=== PATIENT | male | born 1970 | race Asian ===

== ENCOUNTER 2017-09-25 08:32 | Inpatient (IN) | payer MEDICARE, OTHER ==
[2017-09-25] MEDS ORDERED: VANCOMYCIN 1 GM (PMX) 250 ML (09:08)
[2017-09-25] MEDS: VANCOMYCIN 1 GM (PMX) 250 ML IVPB (09:17)
[2017-09-25] MEDS: CEFAZOLIN 2 GM/50 ML (PMX) 50 ML IVPB (09:30)
[2017-09-25] MEDS: LACTATED RINGER'S 1,000 ML IV* (09:30)
[2017-09-25] MEDS ORDERED: BACITRACIN/POLYMYXIN 28.35 GM OINT TOP (09:41)
[2017-09-25] MEDS ORDERED: morphine SULFATE/PF (10 MG/10 ML) INJ (10:18)
[2017-09-25] MEDS ORDERED: FENTAnyl 50 MCG/ML VIAL (10:51)
[2017-09-25] MEDS ORDERED: PHENYLephrine (100 MCG/ML) 5ML SYG ×5 (10:53→13:03)
[2017-09-25] MEDS ORDERED: HYDROCORTISONE 100 MG INJ (10:57)
[2017-09-25] MEDS ORDERED: TRANEXAMIC ACID 1,000 MG in DEXTROSE 5% 100 ML IVPB (11:00)
[2017-09-25] MEDS ORDERED: SOD CHLORIDE 0.9% 50 ML, TRANEXAMIC ACID 1,000 MG IRR (11:00)
[2017-09-25] MEDS ORDERED: ONDANSETRON 4 MG INJ IV ×2 (11:00→15:00)
[2017-09-25] MEDS ORDERED: DEXAMETHASONE 4 MG/ML 1 ML INJ IV (11:00)
[2017-09-25] MEDS ORDERED: CELECOXIB 200 MG CAP PO (11:00)
[2017-09-25] MEDS ORDERED: oxyCODONE (CR) 10 MG TAB [oxyCONTIN] PO (11:00)
[2017-09-25] MEDS ORDERED: LANSOPRAZOLE 30 MG CAP PO (11:00)
[2017-09-25] MEDS ORDERED: ACETAMINOPHEN 1000MG/100ML IV 100 ML IVPB (11:00)
[2017-09-25] MEDS: POLYMYXIN B 500000 UNIT INJ (11:25)
[2017-09-25] MEDS: BACITRACIN 50000 UNITS INJ (11:26)
[2017-09-25] MEDS: HIP PAIN COCKTAIL (CEFUROXIME) INJ (11:55)
[2017-09-25] MEDS ORDERED: VASOPRESSIN 20 UNITS INJ (12:30)
[2017-09-25] MEDS ORDERED: HETASTARCH 6% NACL 500 ML (12:31)
[2017-09-25] MEDS ORDERED: SUCCINYLCHOLINE CHLORIDE 100 MG/5 ML SYG IV (12:52)
[2017-09-25] MEDS ORDERED: ROCURONIUM 50 MG INJ (12:52)
[2017-09-25] MEDS ORDERED: PROPOFOL 20 ML (12:52)
[2017-09-25] MEDS ORDERED: LIDOCAINE 2% (SDV) 5 ML INJ (12:52)
[2017-09-25] MEDS ORDERED: SUGAMMADEX SODIUM 200 MG/2 ML VIAL IV (12:52)
[2017-09-25] MEDS ORDERED: DIPHENHYDRAMINE 50 MG INJ IM (13:30)
[2017-09-25] MEDS ORDERED: NACL 0.9% 3 ML SYG IV (13:30)
[2017-09-25] MEDS ORDERED: MAGNESIUM HYDROXIDE 30ML CUP PO (13:30)
[2017-09-25] MEDS ORDERED: SENNA/DOCUSATE NA (8.6MG/50MG) TAB PO (13:30)
[2017-09-25] MEDS ORDERED: BISACODYL 10 MG SUPP PR (13:30)
[2017-09-25] MEDS ORDERED: oxyCODONE 5 MG TAB PO (13:30)
[2017-09-25] MEDS ORDERED: NA PHOSPHATE/BIPHOS 133 ML ENEMA PR (13:30)
[2017-09-25] MEDS ORDERED: ZOLPIDEM 5 MG TAB PO (13:30)
[2017-09-25] MEDS ORDERED: NALOXONE (0.4 MG/ML) INJ IV (13:30)
[2017-09-25] MEDS ORDERED: BETHANECHOL 25 MG TAB PO (13:30)
[2017-09-25] MEDS ORDERED: FENTAnyl 50 MCG/ML VIAL IV ×2 (15:00)
[2017-09-25] MEDS ORDERED: METOCLOPRAMIDE 10 MG INJ IV (15:00)
[2017-09-25] MEDS ORDERED: EPHEDrine SULFATE 50 MG/5 ML SYG IV (15:00)
[2017-09-25] MEDS ORDERED: DIPHENHYDRAMINE 50 MG INJ IV (15:00)
[2017-09-25] MEDS ORDERED: MEPERIDINE 25 MG INJ IV (15:00)
[2017-09-25] MEDS ORDERED: HYDROmorphONE (0.2 MG/ML) 10ML SYG IV ×2 (15:00)
[2017-09-25] MEDS: ASPIRIN (EC) 325 MG TAB PO ×2 (15:08→21:07)
[2017-09-25] MEDS: DOCUSATE SODIUM 100 MG CAP PO (15:08)
[2017-09-25] MEDS: CEFAZOLIN 1 GM/50 ML (PMX) 50 ML IVPB ×2 (15:12→22:19)
[2017-09-25] MEDS: ONDANSETRON 4 MG INJ IV ×2 (15:15→21:10)
[2017-09-25] MEDS: SOD CHLORIDE 0.9% 1,000 ML IV ×4 (15:18→22:19)
[2017-09-25] MEDS ORDERED: ALBUTEROL/IPRATROPIUM (NEB) 3 ML AMP INH (15:30)
[2017-09-25 17:26] LABS: MAGNESIUM 1.4 mg/dl (1.7-2.5)
[2017-09-25 20:14] LABS: HEMATOCRIT 24.6 % (42.0-52.0); HEMOGLOBIN 8.5 g/dl (14.0-18.0)
[2017-09-25 20:42] LABS: ANION GAP 13 (8-16); BLOOD UREA NITROGEN 24 mg/dl (7-20); CALCIUM 8.1 mg/dl (8.4-10.2); CARBON DIOXIDE 21 mmol/L (21-31); CHLORIDE 111 mmol/L (97-110); GLUCOSE 160 mg/dl (70-220); MAGNESIUM 1.3 mg/dl (1.7-2.5); POTASSIUM 4.3 mmol/L (3.5-5.1); SODIUM 141 mmol/L (135-144)
[2017-09-25] MEDS: ATORVASTATIN 20 MG TAB PO (21:06)
[2017-09-25] MEDS: MAGNESIUM CHLORIDE (SR) 64 MG TAB PO (21:06)
[2017-09-25] MEDS: LORATADINE 10 MG TAB PO (21:07)
[2017-09-25] MEDS: GABAPENTIN 100 MG CAP PO (21:07)
[2017-09-25] MEDS: CYCLOSPORINE 25 MG CAP PO (21:07)
[2017-09-25] MEDS: MONTELUKAST 10 MG TAB PO (21:07)
[2017-09-25] MEDS: DOCUSATE SODIUM 250 MG CAP PO (21:07)
[2017-09-25] MEDS: CHLORHEXIDINE GLUCONATE 15 ML UD CUP MM (21:10)
[2017-09-25] MEDS: PSYLLIUM (SUGAR FREE) PACKET PO (21:10)
[2017-09-25] MEDS: BUDESONIDE (NEB) 0.5MG/2ML AMP INH (22:30)
[2017-09-26] MEDS: ACETAMINOPHEN 325 MG TAB PO ×2 (00:33→15:12)
[2017-09-26] MEDS: traMADol 50 MG TAB PO (02:34)
[2017-09-26] MEDS: ONDANSETRON 4 MG INJ IV ×5 (02:38→21:44)
[2017-09-26] MEDS: SOD CHLORIDE 0.9% 500 ML IV (03:04)
[2017-09-26] MEDS: CEFAZOLIN 1 GM/50 ML (PMX) 50 ML IVPB (05:10)
[2017-09-26] MEDS: PANTOPRAZOLE (EC) 40 MG TAB PO (05:10)
[2017-09-26 07:53] LABS: ADD MAN DIFF? NO
[2017-09-26 07:55] LABS: ABNORMAL IP MESSAGE 1; BASOPHILS % 0.1 % (0.0-2.0); EOSINOPHILS % 0.1 % (0.0-7.0); HEMATOCRIT 23.9 % (42.0-52.0); HEMOGLOBIN 8.2 g/dl (14.0-18.0); LYMPHOCYTES # 2.4 10^3/ul (0.8-2.9); LYMPHOCYTES % 11.3 % (15.0-51.0); MEAN CORPUSCULAR HEMOGLOBIN 32.8 pg (29.0-33.0); MEAN CORPUSCULAR HGB CONC 34.3 g/dl (32.0-37.0); MEAN CORPUSCULAR VOLUME 95.6 fl (82.0-101.0); MEAN PLATELET VOLUME 10.1 fl (7.4-10.4); MONOCYTE # 2.7 10^3/ul (0.3-0.9); MONOCYTES % 12.6 % (0.0-11.0); NEUTROPHILS % 75.3 % (39.0-77.0); PLATELET COUNT 205 10^3/UL (140-415); POSITIVE DIFF @See below; RED CELL DISTRIBUTION WIDTH 12.9 % (11.5-14.5)
[2017-09-26 07:55] LABS: WHITE BLOOD COUNT 21.3 10^3/ul (4.8-10.8)
[2017-09-26 08:18] LABS: ANION GAP 12 (8-16); BLOOD UREA NITROGEN 16 mg/dl (7-20); CALCIUM 8.5 mg/dl (8.4-10.2); CARBON DIOXIDE 21 mmol/L (21-31); CHLORIDE 110 mmol/L (97-110); GLUCOSE 126 mg/dl (70-220); POTASSIUM 3.6 mmol/L (3.5-5.1); SODIUM 139 mmol/L (135-144)
[2017-09-26] MEDS: FLUTICASONE 0.05% 16 GM NAS SPRAY NASAL (08:23)
[2017-09-26] MEDS: CHOLECALCIFEROL 1,000 UNIT TAB PO (08:24)
[2017-09-26] MEDS: DOCUSATE SODIUM 250 MG CAP PO ×2 (08:24→20:16)
[2017-09-26] MEDS: ALLOPURINOL 100 MG TAB PO (08:24)
[2017-09-26] MEDS: DOCUSATE SODIUM 100 MG CAP PO ×2 (08:24→20:16)
[2017-09-26] MEDS: DILTIAZEM (CD) 180 MG CAP PO ×2 (08:25→08:29)
[2017-09-26] MEDS: GABAPENTIN 100 MG CAP PO ×2 (08:25→20:17)
[2017-09-26] MEDS: CALCIUM/VITAMIN D (500/200) TAB PO (08:26)
[2017-09-26] MEDS: predniSONE 5 MG TAB PO (08:26)
[2017-09-26] MEDS: MAGNESIUM CHLORIDE (SR) 64 MG TAB PO ×2 (08:27→20:17)
[2017-09-26] MEDS: ASPIRIN (EC) 325 MG TAB PO ×2 (08:37→20:16)
[2017-09-26] MEDS: PSYLLIUM (SUGAR FREE) PACKET PO ×2 (08:37→20:16)
[2017-09-26] MEDS: FERROUS FUMARATE (SR) TAB PO ×2 (09:04→20:17)
[2017-09-26] MEDS: CYCLOSPORINE 25 MG CAP PO ×2 (09:05→20:15)
[2017-09-26] MEDS: BUDESONIDE (NEB) 0.5MG/2ML AMP INH ×2 (09:54→21:27)
[2017-09-26] MEDS: SOD CHLORIDE 0.9% 1,000 ML IV ×2 (11:52→16:12)
[2017-09-26] MEDS: MAGNESIUM SULFATE 2 GM/50 ML 50 ML IVPB (11:52)
[2017-09-26] MEDS ORDERED: VANCOMYCIN IV PER PHARMACY XX (16:00)
[2017-09-26] MEDS: PIPER-TAZO 2.25 GM (PMX) 50 ML IVPB ×2 (18:08→23:32)
[2017-09-26] MEDS: VANCOMYCIN 1.25 GM in SOD CHLORIDE 0.9% 250 ML IVPB (18:09)
[2017-09-26 18:24] LABS: LACTIC ACID 0.9 mmol/L (0.5-2.0)
[2017-09-26] MEDS: LORATADINE 10 MG TAB PO (20:16)
[2017-09-26] MEDS: ATORVASTATIN 20 MG TAB PO (20:17)
[2017-09-26] MEDS: MONTELUKAST 10 MG TAB PO (20:17)
[2017-09-26] MEDS: CHLORHEXIDINE GLUCONATE 15 ML UD CUP MM (20:17)
[2017-09-27] MEDS: SOD CHLORIDE 0.9% 1,000 ML IV ×2 (02:56→16:45)
[2017-09-27] MEDS: ONDANSETRON 4 MG INJ IV ×4 (04:42→22:30)
[2017-09-27] MEDS: VANCOMYCIN 750 MG in DEXTROSE 5% 150 ML IVPB ×2 (05:43→19:32)
[2017-09-27] MEDS: PIPER-TAZO 2.25 GM (PMX) 50 ML IVPB ×4 (05:43→23:47)
[2017-09-27] MEDS: PANTOPRAZOLE (EC) 40 MG TAB PO (05:43)
[2017-09-27 08:45] LABS: ADD MAN DIFF? NO
[2017-09-27] MEDS: BUDESONIDE (NEB) 0.5MG/2ML AMP INH ×2 (08:52→19:55)
[2017-09-27 08:54] LABS: WHITE BLOOD COUNT 20.6 10^3/ul (4.8-10.8)
[2017-09-27 08:54] LABS: ABNORMAL IP MESSAGE 1; BASOPHIL # 0.1 10^3/ul (0.0-0.1); BASOPHILS % 0.2 % (0.0-2.0); EOSINOPHILS # 0.1 10^3/ul (0.0-0.5); EOSINOPHILS % 0.3 % (0.0-7.0); HEMOGLOBIN 7.9 g/dl (14.0-18.0); LYMPHOCYTES # 2.3 10^3/ul (0.8-2.9); LYMPHOCYTES % 10.9 % (15.0-51.0); MEAN CORPUSCULAR HEMOGLOBIN 33.1 pg (29.0-33.0); MEAN CORPUSCULAR HGB CONC 34.3 g/dl (32.0-37.0); MEAN CORPUSCULAR VOLUME 96.2 fl (82.0-101.0); MEAN PLATELET VOLUME 10.3 fl (7.4-10.4); MONOCYTE # 2.7 10^3/ul (0.3-0.9); MONOCYTES % 12.9 % (0.0-11.0); NEUTROPHIL # 15.4 10^3/ul (1.6-7.5); NEUTROPHILS % 74.7 % (39.0-77.0); PLATELET COUNT 193 10^3/UL (140-415); POSITIVE DIFF @See below; RED BLOOD COUNT 2.39 10^6/ul (4.70-6.10); RED CELL DISTRIBUTION WIDTH 13.2 % (11.5-14.5)
[2017-09-27 09:12] LABS: ANION GAP 13 (8-16); BLOOD UREA NITROGEN 12 mg/dl (7-20); CALCIUM 8.4 mg/dl (8.4-10.2); CARBON DIOXIDE 23 mmol/L (21-31); CHLORIDE 108 mmol/L (97-110); GLUCOSE 138 mg/dl (70-220); POTASSIUM 3.5 mmol/L (3.5-5.1); SODIUM 140 mmol/L (135-144)
[2017-09-27] MEDS: ASPIRIN (EC) 325 MG TAB PO ×2 (09:23→21:23)
[2017-09-27] MEDS: GABAPENTIN 100 MG CAP PO ×2 (09:24→21:24)
[2017-09-27] MEDS: MAGNESIUM CHLORIDE (SR) 64 MG TAB PO ×2 (09:25→21:24)
[2017-09-27] MEDS: FERROUS FUMARATE (SR) TAB PO ×2 (09:26→21:24)
[2017-09-27] MEDS: DILTIAZEM (CD) 180 MG CAP PO (09:26)
[2017-09-27] MEDS: DOCUSATE SODIUM 100 MG CAP PO ×2 (09:27→21:23)
[2017-09-27] MEDS: CYCLOSPORINE 25 MG CAP PO ×2 (09:27→21:23)
[2017-09-27] MEDS: ALLOPURINOL 100 MG TAB PO (09:27)
[2017-09-27] MEDS: CHOLECALCIFEROL 1,000 UNIT TAB PO (09:28)
[2017-09-27] MEDS: FLUTICASONE 0.05% 16 GM NAS SPRAY NASAL (09:30)
[2017-09-27] MEDS: DOCUSATE SODIUM 250 MG CAP PO ×2 (09:34→21:24)
[2017-09-27] MEDS: PSYLLIUM (SUGAR FREE) PACKET PO ×2 (09:34→21:24)
[2017-09-27] MEDS: predniSONE 5 MG TAB PO (09:40)
[2017-09-27] MEDS: CALCIUM/VITAMIN D (500/200) TAB PO (09:40)
[2017-09-27] MEDS: HYDROCODONE/APAP (5/325) TAB PO ×2 (09:51→13:56)
[2017-09-27 12:14] LABS: MAGNESIUM 1.9 mg/dl (1.7-2.5)
[2017-09-27] MEDS: POTASSIUM CHLORIDE (SR) 20 MEQ TAB PO (12:18)
[2017-09-27] MEDS: METOPROLOL 25 MG TAB PO ×2 (15:00→21:00)
[2017-09-27 15:08] LABS: ADD UMIC YES; UR ASCORBIC ACID 20 mg/dL (NEGATIVE); UR BILIRUBIN (Dip) NEGATIVE (NEGATIVE); UR BLOOD (Dip) 2+ mg/dL (NEGATIVE); UR CLARITY CLEAR (CLEAR); UR COLOR YELLOW (YELLOW); UR GLUCOSE (Dip) NEGATIVE (NEGATIVE); UR KETONES (Dip) NEGATIVE (NEGATIVE); UR LEUKOCYTE ESTERASE (Dip) NEGATIVE Leu/ul (NEGATIVE); UR NITRITE (Dip) NEGATIVE (NEGATIVE); UR RBC 7 /HPF (0-5); UR SPECIFIC GRAVITY (Dip) 1.013 (1.003-1.030); UR TOTAL PROTEIN (Dip) NEGATIVE (NEGATIVE); UR UROBILINOGEN (Dip) NEGATIVE (NEGATIVE); UR WBC 0 /HPF (0-5)
[2017-09-27 18:14] LABS: TROPONIN-I 0.031 ng/ml (0.00-0.12)
[2017-09-27] MEDS: CHLORHEXIDINE GLUCONATE 15 ML UD CUP MM (21:22)
[2017-09-27] MEDS: ATORVASTATIN 20 MG TAB PO (21:23)
[2017-09-27] MEDS: MONTELUKAST 10 MG TAB PO (21:24)
[2017-09-27] MEDS: LORATADINE 10 MG TAB PO (21:24)
[2017-09-28 01:24] LABS: TROPONIN-I 0.025 ng/ml (0.00-0.12)
[2017-09-28] MEDS: ONDANSETRON 4 MG INJ IV ×4 (05:21→22:06)
[2017-09-28] MEDS: PIPER-TAZO 2.25 GM (PMX) 50 ML IVPB ×2 (05:21→11:32)
[2017-09-28] MEDS: SOD CHLORIDE 0.9% 1,000 ML IV ×3 (05:25→20:33)
[2017-09-28 06:07] LABS: ADD MAN DIFF? NO
[2017-09-28 06:14] LABS: ABNORMAL IP MESSAGE 1; BASOPHILS % 0.2 % (0.0-2.0); EOSINOPHILS # 0.5 10^3/ul (0.0-0.5); EOSINOPHILS % 2.6 % (0.0-7.0); HEMATOCRIT 20.6 % (42.0-52.0); LYMPHOCYTES # 1.9 10^3/ul (0.8-2.9); LYMPHOCYTES % 10.5 % (15.0-51.0); MEAN CORPUSCULAR VOLUME 97.2 fl (82.0-101.0); MEAN PLATELET VOLUME 10.4 fl (7.4-10.4); MONOCYTE # 2.2 10^3/ul (0.3-0.9); MONOCYTES % 11.7 % (0.0-11.0); NEUTROPHIL # 13.5 10^3/ul (1.6-7.5); NEUTROPHILS % 73.8 % (39.0-77.0); NUCLEATED RED BLOOD CELLS% 0.1 /100WBC (0.0-0.0); PLATELET COUNT 200 10^3/UL (140-415); POSITIVE DIFF @See below; RED BLOOD COUNT 2.12 10^6/ul (4.70-6.10); RED CELL DISTRIBUTION WIDTH 13.5 % (11.5-14.5)
[2017-09-28 06:14] LABS: WHITE BLOOD COUNT 18.3 10^3/ul (4.8-10.8)
[2017-09-28] MEDS: PANTOPRAZOLE (EC) 40 MG TAB PO (06:21)
[2017-09-28 06:51] LABS: ANION GAP 11 (8-16); BLOOD UREA NITROGEN 23 mg/dl (7-20); CALCIUM 8.5 mg/dl (8.4-10.2); CARBON DIOXIDE 23 mmol/L (21-31); CHLORIDE 111 mmol/L (97-110); CREATININE 1.67 mg/dl (0.61-1.24); GLUCOSE 136 mg/dl (70-220); POTASSIUM 4.3 mmol/L (3.5-5.1); SODIUM 141 mmol/L (135-144)
[2017-09-28 06:57] LABS: PHOSPHORUS 2.2 mg/dl (2.5-4.9)
[2017-09-28 06:59] LABS: VANCOMYCIN,TROUGH 11.8 ug/ml (10.0-20.0)
[2017-09-28] MEDS: VANCOMYCIN 750 MG in DEXTROSE 5% 150 ML IVPB (08:03)
[2017-09-28 08:06] LABS: ALANINE AMINOTRANSFERASE 38 IU/L (13-69); ALBUMIN 2.9 g/dl (3.3-4.9); ALKALINE PHOSPHATASE 65 IU/L (42-121); ASPARTATE AMINO TRANSFERASE 46 IU/L (15-46); BILIRUBIN,INDIRECT 0.2 mg/dl (0-1.1); BILIRUBIN,TOTAL 0.2 mg/dl (0.2-1.3); TOTAL PROTEIN 6.1 g/dl (6.1-8.1)
[2017-09-28] MEDS: BUDESONIDE (NEB) 0.5MG/2ML AMP INH ×2 (08:17→20:10)
[2017-09-28] MEDS: PSYLLIUM (SUGAR FREE) PACKET PO ×2 (08:21→20:43)
[2017-09-28] MEDS: DOCUSATE SODIUM 250 MG CAP PO ×2 (08:21→20:38)
[2017-09-28] MEDS: FLUTICASONE 0.05% 16 GM NAS SPRAY NASAL (08:21)
[2017-09-28] MEDS: MAGNESIUM CHLORIDE (SR) 64 MG TAB PO ×2 (08:21→20:36)
[2017-09-28] MEDS: DOCUSATE SODIUM 100 MG CAP PO ×2 (08:22→20:37)
[2017-09-28] MEDS: CYCLOSPORINE 25 MG CAP PO ×2 (08:22→20:36)
[2017-09-28] MEDS: FERROUS FUMARATE (SR) TAB PO ×2 (08:22→20:36)
[2017-09-28] MEDS: CALCIUM/VITAMIN D (500/200) TAB PO (08:23)
[2017-09-28] MEDS: predniSONE 5 MG TAB PO (08:23)
[2017-09-28] MEDS: GABAPENTIN 100 MG CAP PO ×2 (08:23→20:37)
[2017-09-28] MEDS: DILTIAZEM (CD) 180 MG CAP PO (08:24)
[2017-09-28] MEDS: CHOLECALCIFEROL 1,000 UNIT TAB PO (08:24)
[2017-09-28] MEDS: METOPROLOL 25 MG TAB PO ×2 (08:24→20:43)
[2017-09-28] MEDS: ALLOPURINOL 100 MG TAB PO (08:26)
[2017-09-28] MEDS: ASPIRIN (EC) 325 MG TAB PO ×2 (08:26→20:37)
[2017-09-28 10:11] LABS: RETICULOCYTE RBC 2.15
[2017-09-28 10:11] LABS: RETICULOCYTE COUNT # 0.065 X10^6 (0.020-0.110)
[2017-09-28 11:00] LABS: IRON 41 ug/dl (35-150)
[2017-09-28 11:10] LABS: % IRON SATURATION 19 % SAT (22-52); TOTAL IRON BINDING CAPACITY 213 ug/dl (241-421)
[2017-09-28 11:29] LABS: OCCULT BLOOD STOOL NEGATIVE (NEGATIVE)
[2017-09-28 13:29] LABS: IMMEDIATE SPIN CROSSMATCH 1 1
[2017-09-28] MEDS: ACETAMINOPHEN 325 MG TAB PO (13:37)
[2017-09-28 14:54] LABS: CHOLESTEROL 106 mg/dl (100-200)
[2017-09-28 14:54] LABS: CHOL/HDL RATIO 4.6 RATIO; HDL CHOLESTEROL 23 mg/dl (27-67); LDL CHOLESTEROL,CALCULATED 56 mg/dl; TRIGLYCERIDES 133 mg/dl (0-149)
[2017-09-28] MEDS: VANCOMYCIN 500MG/NS (PMX) 100 ML IVPB (20:33)
[2017-09-28] MEDS: CHLORHEXIDINE GLUCONATE 15 ML UD CUP MM (20:36)
[2017-09-28] MEDS: ATORVASTATIN 20 MG TAB PO (20:37)
[2017-09-28] MEDS: MONTELUKAST 10 MG TAB PO (20:37)
[2017-09-28] MEDS: LORATADINE 10 MG TAB PO (20:38)
[2017-09-28] MEDS: PIPER-TAZO 3.375 GM IV (PMX) 100 ML IVPB (22:06)
[2017-09-29] MEDS: PIPER-TAZO 3.375 GM IV (PMX) 100 ML IVPB ×2 (05:17→13:21)
[2017-09-29] MEDS: PANTOPRAZOLE (EC) 40 MG TAB PO (05:17)
[2017-09-29] MEDS: ONDANSETRON 4 MG INJ IV ×3 (05:17→16:03)
[2017-09-29 06:08] LABS: ADD MAN DIFF? NO
[2017-09-29 06:18] LABS: WHITE BLOOD COUNT 15.3 10^3/ul (4.8-10.8)
[2017-09-29 06:18] LABS: ABNORMAL IP MESSAGE 1; BASOPHIL # 0.1 10^3/ul (0.0-0.1); BASOPHILS % 0.3 % (0.0-2.0); EOSINOPHILS # 0.5 10^3/ul (0.0-0.5); EOSINOPHILS % 3.1 % (0.0-7.0); HEMATOCRIT 23.4 % (42.0-52.0); HEMOGLOBIN 8.2 g/dl (14.0-18.0); LYMPHOCYTES # 2.1 10^3/ul (0.8-2.9); LYMPHOCYTES % 13.8 % (15.0-51.0); MEAN CORPUSCULAR HEMOGLOBIN 33.1 pg (29.0-33.0); MEAN CORPUSCULAR VOLUME 94.4 fl (82.0-101.0); MONOCYTE # 1.7 10^3/ul (0.3-0.9); MONOCYTES % 11.1 % (0.0-11.0); NEUTROPHIL # 10.8 10^3/ul (1.6-7.5); NEUTROPHILS % 70.4 % (39.0-77.0); NUCLEATED RED BLOOD CELLS # 0.1 10^3/ul (0.0-0.0); NUCLEATED RED BLOOD CELLS% 0.4 /100WBC (0.0-0.0); PLATELET COUNT 259 10^3/UL (140-415); POSITIVE DIFF @See below; RED BLOOD COUNT 2.48 10^6/ul (4.70-6.10); RED CELL DISTRIBUTION WIDTH 14.6 % (11.5-14.5)
[2017-09-29] MEDS: SOD CHLORIDE 0.9% 1,000 ML IV ×3 (06:34→16:17)
[2017-09-29 06:47] LABS: ANION GAP 11 (8-16); BLOOD UREA NITROGEN 16 mg/dl (7-20); CARBON DIOXIDE 25 mmol/L (21-31); CHLORIDE 112 mmol/L (97-110); CREATININE 1.33 mg/dl (0.61-1.24); GLUCOSE 124 mg/dl (70-220); SODIUM 144 mmol/L (135-144)
[2017-09-29] MEDS: BUDESONIDE (NEB) 0.5MG/2ML AMP INH (07:11)
[2017-09-29] MEDS: DOCUSATE SODIUM 250 MG CAP PO (08:43)
[2017-09-29] MEDS: predniSONE 5 MG TAB PO (08:43)
[2017-09-29] MEDS: PSYLLIUM (SUGAR FREE) PACKET PO (08:43)
[2017-09-29] MEDS: CYCLOSPORINE 25 MG CAP PO (08:43)
[2017-09-29] MEDS: FLUTICASONE 0.05% 16 GM NAS SPRAY NASAL (08:43)
[2017-09-29] MEDS: VANCOMYCIN 500MG/NS (PMX) 100 ML IVPB (08:43)
[2017-09-29] MEDS: ALLOPURINOL 100 MG TAB PO (08:44)
[2017-09-29] MEDS: GABAPENTIN 100 MG CAP PO (08:44)
[2017-09-29] MEDS: MAGNESIUM CHLORIDE (SR) 64 MG TAB PO (08:44)
[2017-09-29] MEDS: CHOLECALCIFEROL 1,000 UNIT TAB PO (08:44)
[2017-09-29] MEDS: ASPIRIN (EC) 325 MG TAB PO (08:44)
[2017-09-29] MEDS: CALCIUM/VITAMIN D (500/200) TAB PO (08:44)
[2017-09-29] MEDS: FERROUS FUMARATE (SR) TAB PO (08:44)
[2017-09-29] MEDS: METOPROLOL 25 MG TAB PO (08:45)
[2017-09-29] MEDS: DILTIAZEM (CD) 180 MG CAP PO (08:45)
== END 2017-09-29 20:18 | DRG 469 ==
LOC: REC 08:32 → MS1 15:35 → TEL 22:00
PROVIDERS: Orthopaedic Surgery Adult Reconstructive Orthopaedic Surgery
PROC: 0SRB04A Replacement of Left Hip Joint with Ceramic on Polyethylene Synthetic Substitute, Uncemented, Open Approach (ICD-10-PCS; principal; 2017-09-25 10:16)
PROC: 30233N1 Transfusion of Nonautologous Red Blood Cells into Peripheral Vein, Percutaneous Approach (ICD-10-PCS; 2017-09-25 10:16)
DX: M16.12 Unilateral primary osteoarthritis, left hip (principal); N18.6 End stage renal disease; T86.19 Other complication of kidney transplant; R65.10 Systemic inflammatory response syndrome (SIRS) of non-infectious origin without acute organ dysfunction; I12.0 Hypertensive chronic kidney disease with stage 5 chronic kidney disease or end stage renal disease; E83.42 Hypomagnesemia; Z94.0 Kidney transplant status; F84.0 Autistic disorder; D62 Acute posthemorrhagic anemia; K59.09 Other constipation; M1A.9XX0 Chronic gout, unspecified, without tophus (tophi); R00.0 Tachycardia, unspecified; E78.5 Hyperlipidemia, unspecified; E83.9 Disorder of mineral metabolism, unspecified; D50.0 Iron deficiency anemia secondary to blood loss (chronic)
CPT/HCPCS: 36430; 71045; 72170; 73500; 73530; 80048; 80061; 80076; 80202; 81001; 82270; 83540; 83605; 83735; 84100; 84443; 84484; 85014; 85018; 85025; 85045; 86850; 86900; 86901; 86920; 87040; 87081; 88304; 88311; 93005; 93306; 94640; 94664; 97110; 97116; 97163; 97167; 97530

== ENCOUNTER 2017-09-29 20:32 | Inpatient (IN) | payer MEDICARE, OTHER ==
[2017-09-29 22:26] LABS: ADD UMIC YES; UR ASCORBIC ACID 20 mg/dL (NEGATIVE); UR BILIRUBIN (Dip) NEGATIVE (NEGATIVE); UR BLOOD (Dip) 1+ mg/dL (NEGATIVE); UR CLARITY CLEAR (CLEAR); UR COLOR YELLOW (YELLOW); UR GLUCOSE (Dip) NEGATIVE (NEGATIVE); UR KETONES (Dip) NEGATIVE (NEGATIVE); UR LEUKOCYTE ESTERASE (Dip) NEGATIVE Leu/ul (NEGATIVE); UR NITRITE (Dip) NEGATIVE (NEGATIVE); UR RBC 5 /HPF (0-5); UR SPECIFIC GRAVITY (Dip) 1.016 (1.003-1.030); UR TOTAL PROTEIN (Dip) NEGATIVE (NEGATIVE); UR UROBILINOGEN (Dip) NEGATIVE (NEGATIVE); UR WBC 0 /HPF (0-5)
[2017-09-29] MEDS ORDERED: ZOLPIDEM 5 MG TAB PO (22:29)
[2017-09-29] MEDS ORDERED: ACETAMINOPHEN 325 MG TAB PO (22:29)
[2017-09-29] MEDS ORDERED: BISACODYL 10 MG SUPP PR (22:29)
[2017-09-29] MEDS ORDERED: HYDROCODONE/APAP (5/325) TAB PO (22:29)
[2017-09-29] MEDS ORDERED: NACL 0.9% 3 ML SYG IV (22:29)
[2017-09-29] MEDS: SENNA/DOCUSATE NA (8.6MG/50MG) TAB PO (22:58)
[2017-09-29] MEDS ORDERED: PROMETHAZINE/CODEINE 5ML CUP PO (23:00)
[2017-09-29] MEDS: AMOXICILLIN/CLAV 875 MG TAB PO (23:22)
[2017-09-29] MEDS: FERROUS FUMARATE (SR) TAB PO (23:24)
[2017-09-29] MEDS: DOCUSATE SODIUM 250 MG CAP PO (23:24)
[2017-09-29] MEDS: METOPROLOL 25 MG TAB PO (23:28)
[2017-09-29] MEDS: GABAPENTIN 100 MG CAP PO (23:28)
[2017-09-29] MEDS: CHLORHEXIDINE GLUCONATE 15 ML UD CUP MM (23:28)
[2017-09-29] MEDS: MAGNESIUM CHLORIDE (SR) 64 MG TAB PO (23:28)
[2017-09-29] MEDS: LORATADINE 10 MG TAB PO (23:29)
[2017-09-29] MEDS: MONTELUKAST 10 MG TAB PO (23:30)
[2017-09-29] MEDS: ATORVASTATIN 20 MG TAB PO (23:30)
[2017-09-29] MEDS: CYCLOSPORINE 25 MG CAP PO (23:45)
[2017-09-30] MEDS ORDERED: PENDING SANTYL ORDER FOR WOUND CARE XX (01:30)
[2017-09-30] MEDS: PANTOPRAZOLE (EC) 40 MG TAB PO (06:37)
[2017-09-30] MEDS: BUDESONIDE (NEB) 0.5MG/2ML AMP INH ×3 (09:04→21:13)
[2017-09-30] MEDS: FLUTICASONE 0.05% 16 GM NAS SPRAY NASAL (09:09)
[2017-09-30] MEDS: AMOXICILLIN/CLAV 875 MG TAB PO ×2 (09:09→21:06)
[2017-09-30] MEDS: DILTIAZEM (CD) 180 MG CAP PO (09:10)
[2017-09-30] MEDS: DOCUSATE SODIUM 250 MG CAP PO ×2 (09:10→21:07)
[2017-09-30] MEDS: FERROUS FUMARATE (SR) TAB PO ×2 (09:10→21:07)
[2017-09-30] MEDS: CALCIUM/VITAMIN D (500/200) TAB PO (09:11)
[2017-09-30] MEDS: CHOLECALCIFEROL 1,000 UNIT TAB PO (09:11)
[2017-09-30] MEDS: CYCLOSPORINE 25 MG CAP PO (09:11)
[2017-09-30] MEDS: METOPROLOL 25 MG TAB PO ×2 (09:11→21:07)
[2017-09-30] MEDS: ALLOPURINOL 100 MG TAB PO (09:11)
[2017-09-30] MEDS: GABAPENTIN 100 MG CAP PO ×2 (09:11→21:07)
[2017-09-30] MEDS: MAGNESIUM CHLORIDE (SR) 64 MG TAB PO ×2 (09:11→21:07)
[2017-09-30] MEDS: predniSONE 5 MG TAB PO (09:11)
[2017-09-30 09:15] LABS: ADD MAN DIFF? NO
[2017-09-30 09:51] LABS: ALANINE AMINOTRANSFERASE 111 IU/L (13-69); ALBUMIN 3.8 g/dl (3.3-4.9); ALBUMIN/GLOBULIN RATIO 1.05; ALKALINE PHOSPHATASE 153 IU/L (42-121); ANION GAP 17 (8-16); ASPARTATE AMINO TRANSFERASE 111 IU/L (15-46); BILIRUBIN,INDIRECT 0.4 mg/dl (0-1.1); BILIRUBIN,TOTAL 0.4 mg/dl (0.2-1.3); BLOOD UREA NITROGEN 18 mg/dl (7-20); CALCIUM 9.8 mg/dl (8.4-10.2); CARBON DIOXIDE 27 mmol/L (21-31); CHLORIDE 104 mmol/L (97-110); CREATININE 1.43 mg/dl (0.61-1.24); GLUCOSE 120 mg/dl (70-220); POTASSIUM 3.8 mmol/L (3.5-5.1); SODIUM 144 mmol/L (135-144); TOTAL PROTEIN 7.4 g/dl (6.1-8.1)
[2017-09-30 10:18] LABS: BASOPHIL # 0.1 10^3/ul (0.0-0.1); BASOPHILS % 0.4 % (0.0-2.0); EOSINOPHILS # 0.5 10^3/ul (0.0-0.5); EOSINOPHILS % 3.7 % (0.0-7.0); HEMATOCRIT 28.2 % (42.0-52.0); HEMOGLOBIN 9.5 g/dl (14.0-18.0); LYMPHOCYTES # 2.3 10^3/ul (0.8-2.9); LYMPHOCYTES % 16.9 % (15.0-51.0); MEAN CORPUSCULAR HEMOGLOBIN 32.2 pg (29.0-33.0); MEAN CORPUSCULAR HGB CONC 33.7 g/dl (32.0-37.0); MEAN CORPUSCULAR VOLUME 95.6 fl (82.0-101.0); MEAN PLATELET VOLUME 10.2 fl (7.4-10.4); MONOCYTE # 1.4 10^3/ul (0.3-0.9); MONOCYTES % 10.6 % (0.0-11.0); NEUTROPHILS % 66.5 % (39.0-77.0); NUCLEATED RED BLOOD CELLS # 0.1 10^3/ul (0.0-0.0); NUCLEATED RED BLOOD CELLS% 0.7 /100WBC (0.0-0.0); PLATELET COUNT 357 10^3/UL (140-415); RED BLOOD COUNT 2.95 10^6/ul (4.70-6.10); RED CELL DISTRIBUTION WIDTH 14.1 % (11.5-14.5)
[2017-09-30 10:18] LABS: WHITE BLOOD COUNT 13.6 10^3/ul (4.8-10.8)
[2017-09-30] MEDS: LORATADINE 10 MG TAB PO (21:06)
[2017-09-30] MEDS: CHLORHEXIDINE GLUCONATE 15 ML UD CUP MM (21:07)
[2017-09-30] MEDS: MONTELUKAST 10 MG TAB PO (21:07)
[2017-09-30] MEDS: ATORVASTATIN 20 MG TAB PO (21:08)
[2017-09-30] MEDS: CYCLOSPORINE 100 MG CAP PO (21:21)
[2017-10-01] MEDS: PANTOPRAZOLE (EC) 40 MG TAB PO (06:23)
[2017-10-01] MEDS: BUDESONIDE (NEB) 0.5MG/2ML AMP INH ×2 (09:00→21:00)
[2017-10-01] MEDS: MAGNESIUM CHLORIDE (SR) 64 MG TAB PO ×2 (09:15→20:02)
[2017-10-01] MEDS: CYCLOSPORINE 25 MG CAP PO (09:20)
[2017-10-01] MEDS: CHOLECALCIFEROL 1,000 UNIT TAB PO (09:20)
[2017-10-01] MEDS: FERROUS FUMARATE (SR) TAB PO ×2 (09:20→20:03)
[2017-10-01] MEDS: CALCIUM/VITAMIN D (500/200) TAB PO (09:20)
[2017-10-01] MEDS: DILTIAZEM (CD) 180 MG CAP PO (09:20)
[2017-10-01] MEDS: AMOXICILLIN/CLAV 875 MG TAB PO ×2 (09:20→20:02)
[2017-10-01] MEDS: GABAPENTIN 100 MG CAP PO ×2 (09:21→20:02)
[2017-10-01] MEDS: FLUTICASONE 0.05% 16 GM NAS SPRAY NASAL (09:21)
[2017-10-01] MEDS: METOPROLOL 25 MG TAB PO ×2 (09:21→20:06)
[2017-10-01] MEDS: predniSONE 5 MG TAB PO (09:21)
[2017-10-01] MEDS: DOCUSATE SODIUM 250 MG CAP PO ×2 (09:21→20:05)
[2017-10-01] MEDS: ALLOPURINOL 100 MG TAB PO (09:21)
[2017-10-01] MEDS: ATORVASTATIN 20 MG TAB PO (20:01)
[2017-10-01] MEDS: SENNA/DOCUSATE NA (8.6MG/50MG) TAB PO (20:02)
[2017-10-01] MEDS: MONTELUKAST 10 MG TAB PO (20:03)
[2017-10-01] MEDS: LORATADINE 10 MG TAB PO (20:03)
[2017-10-01] MEDS: CYCLOSPORINE 100 MG CAP PO (20:06)
[2017-10-02] MEDS: PANTOPRAZOLE (EC) 40 MG TAB PO (06:21)
[2017-10-02] MEDS: BUDESONIDE (NEB) 0.5MG/2ML AMP INH ×3 (09:00→22:01)
[2017-10-02] MEDS: FERROUS FUMARATE (SR) TAB PO ×2 (09:58→20:59)
[2017-10-02] MEDS: MAGNESIUM CHLORIDE (SR) 64 MG TAB PO ×2 (09:58→20:59)
[2017-10-02] MEDS: GABAPENTIN 100 MG CAP PO ×2 (09:58→20:59)
[2017-10-02] MEDS: CYCLOSPORINE 25 MG CAP PO (09:58)
[2017-10-02] MEDS: AMOXICILLIN/CLAV 875 MG TAB PO ×2 (09:59→20:59)
[2017-10-02] MEDS: ALLOPURINOL 100 MG TAB PO (09:59)
[2017-10-02] MEDS: DILTIAZEM (CD) 180 MG CAP PO (09:59)
[2017-10-02] MEDS: DOCUSATE SODIUM 250 MG CAP PO ×2 (09:59→20:59)
[2017-10-02] MEDS: FLUTICASONE 0.05% 16 GM NAS SPRAY NASAL (10:00)
[2017-10-02] MEDS: CALCIUM/VITAMIN D (500/200) TAB PO (10:00)
[2017-10-02] MEDS: CHOLECALCIFEROL 1,000 UNIT TAB PO (10:00)
[2017-10-02] MEDS: predniSONE 5 MG TAB PO (10:00)
[2017-10-02] MEDS: METOPROLOL 25 MG TAB PO ×2 (10:00→21:04)
[2017-10-02] MEDS: CHLORHEXIDINE GLUCONATE 15 ML UD CUP MM (20:58)
[2017-10-02] MEDS: ATORVASTATIN 20 MG TAB PO (20:59)
[2017-10-02] MEDS: MONTELUKAST 10 MG TAB PO (20:59)
[2017-10-02] MEDS: LORATADINE 10 MG TAB PO (20:59)
[2017-10-02] MEDS: CYCLOSPORINE 100 MG CAP PO (22:00)
[2017-10-03 06:14] LABS: ADD MAN DIFF? NO
[2017-10-03 06:22] LABS: BASOPHIL # 0.1 10^3/ul (0.0-0.1); BASOPHILS % 0.4 % (0.0-2.0); EOSINOPHILS # 0.4 10^3/ul (0.0-0.5); EOSINOPHILS % 2.9 % (0.0-7.0); HEMATOCRIT 27.4 % (42.0-52.0); HEMOGLOBIN 9.3 g/dl (14.0-18.0); LYMPHOCYTES # 2.6 10^3/ul (0.8-2.9); MEAN CORPUSCULAR HEMOGLOBIN 32.9 pg (29.0-33.0); MEAN CORPUSCULAR HGB CONC 33.9 g/dl (32.0-37.0); MEAN CORPUSCULAR VOLUME 96.8 fl (82.0-101.0); MEAN PLATELET VOLUME 9.1 fl (7.4-10.4); MONOCYTE # 1.3 10^3/ul (0.3-0.9); MONOCYTES % 9.2 % (0.0-11.0); NEUTROPHIL # 9.6 10^3/ul (1.6-7.5); NEUTROPHILS % 66.3 % (39.0-77.0); NUCLEATED RED BLOOD CELLS% 0.1 /100WBC (0.0-0.0); PLATELET COUNT 494 10^3/UL (140-415); RED BLOOD COUNT 2.83 10^6/ul (4.70-6.10)
[2017-10-03 06:22] LABS: WHITE BLOOD COUNT 14.4 10^3/ul (4.8-10.8)
[2017-10-03] MEDS: PANTOPRAZOLE (EC) 40 MG TAB PO (06:42)
[2017-10-03 07:14] LABS: ANION GAP 14 (8-16); BLOOD UREA NITROGEN 25 mg/dl (7-20); CALCIUM 9.5 mg/dl (8.4-10.2); CARBON DIOXIDE 27 mmol/L (21-31); CHLORIDE 106 mmol/L (97-110); CREATININE 1.21 mg/dl (0.61-1.24); GLUCOSE 107 mg/dl (70-220); PHOSPHORUS 3.6 mg/dl (2.5-4.9); POTASSIUM 4.3 mmol/L (3.5-5.1); SODIUM 143 mmol/L (135-144)
[2017-10-03] MEDS: BUDESONIDE (NEB) 0.5MG/2ML AMP INH ×2 (09:00→20:24)
[2017-10-03] MEDS: FLUTICASONE 0.05% 16 GM NAS SPRAY NASAL (09:53)
[2017-10-03] MEDS: GABAPENTIN 100 MG CAP PO ×2 (09:54→20:26)
[2017-10-03] MEDS: predniSONE 5 MG TAB PO (09:54)
[2017-10-03] MEDS: DOCUSATE SODIUM 250 MG CAP PO ×2 (09:54→20:25)
[2017-10-03] MEDS: ALLOPURINOL 100 MG TAB PO (09:54)
[2017-10-03] MEDS: CHOLECALCIFEROL 1,000 UNIT TAB PO (09:54)
[2017-10-03] MEDS: MAGNESIUM CHLORIDE (SR) 64 MG TAB PO ×2 (09:54→20:26)
[2017-10-03] MEDS: AMOXICILLIN/CLAV 875 MG TAB PO ×2 (09:54→20:25)
[2017-10-03] MEDS: FERROUS FUMARATE (SR) TAB PO ×2 (09:54→20:26)
[2017-10-03] MEDS: CALCIUM/VITAMIN D (500/200) TAB PO (09:54)
[2017-10-03] MEDS: CYCLOSPORINE 25 MG CAP PO (09:54)
[2017-10-03] MEDS: DILTIAZEM (CD) 180 MG CAP PO (09:55)
[2017-10-03] MEDS: METOPROLOL 25 MG TAB PO ×2 (09:58→20:26)
[2017-10-03] MEDS: LORATADINE 10 MG TAB PO (20:26)
[2017-10-03] MEDS: CYCLOSPORINE 100 MG CAP PO (20:26)
[2017-10-03] MEDS: ATORVASTATIN 20 MG TAB PO (20:26)
[2017-10-03] MEDS: MONTELUKAST 10 MG TAB PO (20:26)
[2017-10-03] MEDS: CHLORHEXIDINE GLUCONATE 15 ML UD CUP MM (23:08)
[2017-10-04] MEDS: PANTOPRAZOLE (EC) 40 MG TAB PO (05:27)
[2017-10-04] MEDS: BUDESONIDE (NEB) 0.5MG/2ML AMP INH ×2 (08:24→21:00)
[2017-10-04] MEDS: DILTIAZEM (CD) 180 MG CAP PO (09:00)
[2017-10-04] MEDS: METOPROLOL 25 MG TAB PO ×2 (09:00→20:17)
[2017-10-04] MEDS: FLUTICASONE 0.05% 16 GM NAS SPRAY NASAL (09:39)
[2017-10-04] MEDS: GABAPENTIN 100 MG CAP PO ×2 (09:39→20:15)
[2017-10-04] MEDS: ALLOPURINOL 100 MG TAB PO (09:41)
[2017-10-04] MEDS: DOCUSATE SODIUM 250 MG CAP PO ×2 (09:41→20:16)
[2017-10-04] MEDS: AMOXICILLIN/CLAV 875 MG TAB PO (09:41)
[2017-10-04] MEDS: MAGNESIUM CHLORIDE (SR) 64 MG TAB PO ×2 (09:41→20:15)
[2017-10-04] MEDS: predniSONE 5 MG TAB PO (09:44)
[2017-10-04] MEDS: FERROUS FUMARATE (SR) TAB PO ×2 (09:44→20:16)
[2017-10-04] MEDS: CHOLECALCIFEROL 1,000 UNIT TAB PO (09:44)
[2017-10-04] MEDS: CALCIUM/VITAMIN D (500/200) TAB PO (09:44)
[2017-10-04] MEDS: CYCLOSPORINE 25 MG CAP PO (09:44)
[2017-10-04] MEDS: ATORVASTATIN 20 MG TAB PO (20:16)
[2017-10-04] MEDS: MONTELUKAST 10 MG TAB PO (20:16)
[2017-10-04] MEDS: CYCLOSPORINE 100 MG CAP PO (20:16)
[2017-10-04] MEDS: CHLORHEXIDINE GLUCONATE 15 ML UD CUP MM (20:16)
[2017-10-04] MEDS: LORATADINE 10 MG TAB PO (20:16)
[2017-10-05] MEDS: LEVALBUTEROL (NEB) 0.63 MG/3 ML AMP INH (01:28)
[2017-10-05] MEDS: PANTOPRAZOLE (EC) 40 MG TAB PO (05:46)
[2017-10-05 07:46] LABS: ANION GAP 15 (8-16); BLOOD UREA NITROGEN 27 mg/dl (7-20); CALCIUM 9.7 mg/dl (8.4-10.2); CARBON DIOXIDE 23 mmol/L (21-31); CHLORIDE 109 mmol/L (97-110); CREATININE 1.25 mg/dl (0.61-1.24); GLUCOSE 115 mg/dl (70-220); MAGNESIUM 2.1 mg/dl (1.7-2.5); PHOSPHORUS 3.9 mg/dl (2.5-4.9); POTASSIUM 4.3 mmol/L (3.5-5.1); SODIUM 143 mmol/L (135-144)
[2017-10-05] MEDS: GABAPENTIN 100 MG CAP PO ×2 (08:47→20:46)
[2017-10-05] MEDS: CYCLOSPORINE 25 MG CAP PO (08:47)
[2017-10-05] MEDS: MAGNESIUM CHLORIDE (SR) 64 MG TAB PO ×2 (08:47→20:45)
[2017-10-05] MEDS: FERROUS FUMARATE (SR) TAB PO ×2 (08:47→20:46)
[2017-10-05] MEDS: DOCUSATE SODIUM 250 MG CAP PO ×2 (08:47→20:46)
[2017-10-05] MEDS: FLUTICASONE 0.05% 16 GM NAS SPRAY NASAL (08:47)
[2017-10-05] MEDS: CHOLECALCIFEROL 1,000 UNIT TAB PO (08:47)
[2017-10-05] MEDS: ALLOPURINOL 100 MG TAB PO (08:47)
[2017-10-05] MEDS: METOPROLOL 25 MG TAB PO ×2 (08:49→20:50)
[2017-10-05] MEDS: CALCIUM/VITAMIN D (500/200) TAB PO (08:49)
[2017-10-05] MEDS: predniSONE 5 MG TAB PO (08:49)
[2017-10-05] MEDS: BUDESONIDE (NEB) 0.5MG/2ML AMP INH ×2 (09:42→21:05)
[2017-10-05] MEDS: CHLORHEXIDINE GLUCONATE 15 ML UD CUP MM (20:45)
[2017-10-05] MEDS: MONTELUKAST 10 MG TAB PO (20:45)
[2017-10-05] MEDS: ATORVASTATIN 20 MG TAB PO (20:46)
[2017-10-05] MEDS: LORATADINE 10 MG TAB PO (20:47)
[2017-10-05] MEDS: CYCLOSPORINE 100 MG CAP PO (20:51)
[2017-10-06] MEDS: PANTOPRAZOLE (EC) 40 MG TAB PO (06:35)
[2017-10-06] MEDS: METOPROLOL 25 MG TAB PO ×2 (09:00→21:00)
[2017-10-06] MEDS: CHOLECALCIFEROL 1,000 UNIT TAB PO (09:16)
[2017-10-06] MEDS: CYCLOSPORINE 25 MG CAP PO (09:16)
[2017-10-06] MEDS: FLUTICASONE 0.05% 16 GM NAS SPRAY NASAL (09:16)
[2017-10-06] MEDS: FERROUS FUMARATE (SR) TAB PO ×2 (09:16→20:42)
[2017-10-06] MEDS: MAGNESIUM CHLORIDE (SR) 64 MG TAB PO ×2 (09:16→20:42)
[2017-10-06] MEDS: ALLOPURINOL 100 MG TAB PO (09:17)
[2017-10-06] MEDS: predniSONE 5 MG TAB PO (09:17)
[2017-10-06] MEDS: GABAPENTIN 100 MG CAP PO ×2 (09:17→20:43)
[2017-10-06] MEDS: CALCIUM/VITAMIN D (500/200) TAB PO (09:17)
[2017-10-06] MEDS: DOCUSATE SODIUM 250 MG CAP PO ×2 (09:17→20:42)
[2017-10-06] MEDS: BUDESONIDE (NEB) 0.5MG/2ML AMP INH ×2 (09:40→20:06)
[2017-10-06] MEDS: CHLORHEXIDINE GLUCONATE 15 ML UD CUP MM (20:43)
[2017-10-06] MEDS: ATORVASTATIN 20 MG TAB PO (20:43)
[2017-10-06] MEDS: MONTELUKAST 10 MG TAB PO (20:43)
[2017-10-06] MEDS: CYCLOSPORINE 100 MG CAP PO (20:43)
[2017-10-06] MEDS: LORATADINE 10 MG TAB PO (20:46)
[2017-10-07] MEDS: PANTOPRAZOLE (EC) 40 MG TAB PO (06:49)
[2017-10-07] MEDS: FLUTICASONE 0.05% 16 GM NAS SPRAY NASAL (08:47)
[2017-10-07] MEDS: GABAPENTIN 100 MG CAP PO ×2 (08:48→20:32)
[2017-10-07] MEDS: predniSONE 5 MG TAB PO (08:48)
[2017-10-07] MEDS: CALCIUM/VITAMIN D (500/200) TAB PO (08:48)
[2017-10-07] MEDS: ALLOPURINOL 100 MG TAB PO (08:48)
[2017-10-07] MEDS: FERROUS FUMARATE (SR) TAB PO ×2 (08:48→20:32)
[2017-10-07] MEDS: MAGNESIUM CHLORIDE (SR) 64 MG TAB PO ×2 (08:48→20:32)
[2017-10-07] MEDS: CHOLECALCIFEROL 1,000 UNIT TAB PO (08:48)
[2017-10-07] MEDS: DOCUSATE SODIUM 250 MG CAP PO ×2 (08:48→20:33)
[2017-10-07] MEDS: CYCLOSPORINE 25 MG CAP PO (08:49)
[2017-10-07] MEDS: METOPROLOL 25 MG TAB PO ×2 (08:50→20:47)
[2017-10-07] MEDS: BUDESONIDE (NEB) 0.5MG/2ML AMP INH ×2 (09:49→20:16)
[2017-10-07] MEDS: ATORVASTATIN 20 MG TAB PO (20:32)
[2017-10-07] MEDS: MONTELUKAST 10 MG TAB PO (20:32)
[2017-10-07] MEDS: LORATADINE 10 MG TAB PO (20:33)
[2017-10-07] MEDS: CHLORHEXIDINE GLUCONATE 15 ML UD CUP MM (20:33)
[2017-10-07] MEDS: CYCLOSPORINE 100 MG CAP PO (20:41)
[2017-10-08] MEDS: PANTOPRAZOLE (EC) 40 MG TAB PO (05:49)
[2017-10-08] MEDS: CHOLECALCIFEROL 1,000 UNIT TAB PO (08:57)
[2017-10-08] MEDS: FLUTICASONE 0.05% 16 GM NAS SPRAY NASAL (08:57)
[2017-10-08] MEDS: FERROUS FUMARATE (SR) TAB PO ×2 (08:57→20:43)
[2017-10-08] MEDS: GABAPENTIN 100 MG CAP PO ×2 (08:57→20:42)
[2017-10-08] MEDS: predniSONE 5 MG TAB PO (08:58)
[2017-10-08] MEDS: DOCUSATE SODIUM 250 MG CAP PO ×2 (08:58→20:43)
[2017-10-08] MEDS: CYCLOSPORINE 25 MG CAP PO (08:58)
[2017-10-08] MEDS: ALLOPURINOL 100 MG TAB PO (08:58)
[2017-10-08] MEDS: MAGNESIUM CHLORIDE (SR) 64 MG TAB PO ×2 (08:58→20:42)
[2017-10-08] MEDS: CALCIUM/VITAMIN D (500/200) TAB PO (09:02)
[2017-10-08] MEDS: BUDESONIDE (NEB) 0.5MG/2ML AMP INH ×2 (10:04→20:22)
[2017-10-08] MEDS: METOPROLOL 25 MG TAB PO ×2 (15:05→20:48)
[2017-10-08] MEDS: LORATADINE 10 MG TAB PO (20:43)
[2017-10-08] MEDS: ATORVASTATIN 20 MG TAB PO (20:43)
[2017-10-08] MEDS: MONTELUKAST 10 MG TAB PO (20:49)
[2017-10-08] MEDS: CYCLOSPORINE 100 MG CAP PO (20:51)
[2017-10-08] MEDS: CHLORHEXIDINE GLUCONATE 15 ML UD CUP MM (21:47)
[2017-10-09] MEDS: PANTOPRAZOLE (EC) 40 MG TAB PO (06:17)
[2017-10-09 08:10] LABS: ANION GAP 16 (8-16); BLOOD UREA NITROGEN 26 mg/dl (7-20); CALCIUM 9.7 mg/dl (8.4-10.2); CARBON DIOXIDE 24 mmol/L (21-31); CHLORIDE 109 mmol/L (97-110); CREATININE 1.36 mg/dl (0.61-1.24); GLUCOSE 103 mg/dl (70-220); POTASSIUM 4.2 mmol/L (3.5-5.1); SODIUM 145 mmol/L (135-144)
[2017-10-09] MEDS: BUDESONIDE (NEB) 0.5MG/2ML AMP INH (08:35)
[2017-10-09] MEDS: MAGNESIUM CHLORIDE (SR) 64 MG TAB PO (10:02)
[2017-10-09] MEDS: FERROUS FUMARATE (SR) TAB PO (10:02)
[2017-10-09] MEDS: FLUTICASONE 0.05% 16 GM NAS SPRAY NASAL (10:02)
[2017-10-09] MEDS: predniSONE 5 MG TAB PO (10:02)
[2017-10-09] MEDS: CHOLECALCIFEROL 1,000 UNIT TAB PO (10:02)
[2017-10-09] MEDS: ALLOPURINOL 100 MG TAB PO (10:02)
[2017-10-09] MEDS: GABAPENTIN 100 MG CAP PO (10:02)
[2017-10-09] MEDS: CALCIUM/VITAMIN D (500/200) TAB PO (10:02)
[2017-10-09] MEDS: DOCUSATE SODIUM 250 MG CAP PO (10:03)
[2017-10-09] MEDS: METOPROLOL 25 MG TAB PO (10:03)
[2017-10-09] MEDS: CYCLOSPORINE 25 MG CAP PO (10:08)
== END 2017-10-09 13:30 | disposition home health service (06) | DRG 559 ==
LOC: VRC 20:32
PROC: F08Z1ZZ Dressing Techniques Treatment (ICD-10-PCS; principal; 2017-09-29)
PROC: F07Z5ZZ Bed Mobility Treatment (ICD-10-PCS; 2017-09-29)
DX: Z47.1 Aftercare following joint replacement surgery (principal); N18.6 End stage renal disease; I12.0 Hypertensive chronic kidney disease with stage 5 chronic kidney disease or end stage renal disease; Z94.0 Kidney transplant status; I07.1 Rheumatic tricuspid insufficiency; D62 Acute posthemorrhagic anemia; F84.0 Autistic disorder; I10 Essential (primary) hypertension; Z96.642 Presence of left artificial hip joint; R00.0 Tachycardia, unspecified; E78.5 Hyperlipidemia, unspecified; K59.00 Constipation, unspecified; M10.9 Gout, unspecified; J44.9 Chronic obstructive pulmonary disease, unspecified; R52 Pain, unspecified; M81.0 Age-related osteoporosis without current pathological fracture; F19.94 Other psychoactive substance use, unspecified with psychoactive substance-induced mood disorder; E11.9 Type 2 diabetes mellitus without complications
CPT/HCPCS: 80048; 80053; 81001; 83735; 84100; 85025; 87081; 87086; 92523; 94640; 94664; 97110; 97112; 97116; 97150; 97163; 97167; 97530; 97535